=== PATIENT | male | born 1960 | race Caucasian/White ===

== ENCOUNTER 2022-02-24 13:05 | Emergency (ER) | payer OTHER, SELFPAY ==
[2022-02-24 13:14] VITALS: BP 137/73; PULSE 66; RESP 16; TEMP 37.2; O2SAT 98; BMI 21.7
[2022-02-24 15:47] VITALS: BP 141/84; PULSE 54; RESP 18; O2SAT 99
--- NOTE | 2022-02-24 16:01 | CRLHL7_ITS ---
For Patients: As a result of the Cures Act, medical imaging exams and procedure reports are released immediately into your electronic medical record. You may view this report before your referring provider. If you have questions, please contact your health care provider. INDICATION: Fall, left-sided chest pain.. TECHNIQUE: Chest 2 views. COMPARISON: None. FINDINGS: Cardiovascular and mediastinum: Cardiomediastinal silhouette is within normal limits Lungs and pleural spaces: Lungs are clear. No sign of pleural effusion. No pneumothorax. Bones and soft tissues: No significant findings. IMPRESSION: No acute or significant findings. Dictated by Jae Cortez MD @ 02/24/2022 4:47:52 PM (Electronically Signed)
--- NOTE | 2022-02-24 16:01 | CRLHL7_ITS ---
For Patients: As a result of the Cures Act, medical imaging exams and procedure reports are released immediately into your electronic medical record. You may view this report before your referring provider. If you have questions, please contact your health care provider. Indication: Fall. Technique: Left knee, 3 views. Comparison: None. Findings: Bones: Alignment is normal. No fractures or bone lesions. Mild demineralization of visualized bones. Joint spaces: Small to moderate suprapatellar effusion.. Mild tricompartmental degenerative changes. Soft tissues: Unremarkable. Impression: No acute fracture or dislocation identified. Moderate suprapatellar fusion. If there is persistent concern for fracture, consider further evaluation with CT or MRI of the knee. Dictated by Jae Cortez MD @ 02/24/2022 4:49:49 PM (Electronically Signed)
[2022-02-24] MEDS: IBUPROFEN 200 MG TABLET 400 MG PO (16:37)
[2022-02-24 16:53] LABS: Basophils Absolute Auto 0.05 K/uL (0.00-0.30); Basophils Percent Auto 0.6 % (0.0-3.0); Eosinophils Absolute Auto 0.05 K/uL (0.00-0.50); Eosinophils Percent Auto 0.6 % (0.0-7.0); Hematocrit 28.9 % (37.0-53.0); Hemoglobin* 8.3 gm/dL (13.5-17.5); Immature Granulocytes Abs Auto 0.01 K/uL (0.00-0.30); Immature Granulocytes Pct Auto 0.1 %; Lymphocytes Percent Auto 16.6 % (20-44); Mean Corpuscular HGB Conc 29 gm/dL (32-36); Mean Corpuscular Hemoglobin 19 pg (26-34); Mean Corpuscular Volume 67 fL (80-100); Monocytes Percent Auto 8.7 % (0.0-11.0); Neutrophils Percent Auto 73.4 % (42.0-72.0); Platelet Count* 425 K/uL (140-440); RDW Coefficient of Variation % 16.5 % (11.5-15.5); Red Blood Count 4.34 m/uL (4.30-5.90); White Blood Count* 8.01 K/uL (4.50-11.00)
[2022-02-24 16:56] LABS: Slide Review Reflex Yes
[2022-02-24 17:08] LABS: Albumin* 4.3 g/dL (3.3-5.0); Slide Review Acceptable Review (Acceptable)
[2022-02-24 17:09] LABS: Chloride* 106 mmol/L (96-114); Potassium* 4.7 mmol/L (3.6-5.1); Sodium* 138 mmol/L (135-149)
[2022-02-24 17:11] LABS: Bilirubin Total* 1.4 mg/dL (0.1-1.5); Carbon Dioxide* 26 mmol/L (20-32); Creatinine* 0.8 mg/dL (0.5-1.5); Est. Creatinine Clearance* 102.06; Estimated Glomerular Filt Rate 102 ml/min
[2022-02-24 17:12] LABS: Alanine Aminotransferase* 15 U/L (4-50); Alkaline Phosphatase* 74 U/L (40-150); Aspartate Amino Transferase* 20 U/L (12-35); Blood Urea Nitrogen* 12 mg/dL (7-30); Glucose* 86 mg/dL (60-115); Total Protein* 6.9 g/dL (6.0-8.3)
[2022-02-24 17:13] LABS: Calcium* 8.6 mg/dL (8.4-10.6)
--- NOTE | 2022-02-24 17:35 | ED_ITS ---
HPI - General Adult General Date Seen: 02/24/22 Chief complaint: Fall/Minor Trauma Stated complaint: Fell at Work,Rib & Knee pain Time Seen by Provider: 02/24/22 15:43 Source: patient Mode of arrival: ambulatory Limitations: no limitations History of Present Illness HPI narrative: Patient is a 61-year-old male who slipped and fell at work yesterday. He twisted his knee and landed on his left side. He has some pain in his left rib cage, no shortness of breath. Did not hit his head and has no complaints of neck or back pain. His knee he says was a little swollen but seems better toda y. Has not really taken any medications for pain. Was at work today and was feeling more sore so boss recommended that he be seen. Initially he denied other health concerns, although when I went back in to talk to him about his labs he told me that he had 2 ft of small intestine removed a number of years ago, has had diarrhea since then, is supposed to be on B12 injections but does not get them because of cost, takes B12 pills instead, had a colonoscopy on February 08, and is scheduled for some sort of small intestine test up in [facility] a couple of weeks from now and he is not sure what that test is 4. He denies allergies. He denies tobacco use or significant alcohol use. Related Data Home Medications Medication Instructions Recorded Confirmed No Known Home Medications 02/24/22 02/24/22 Allergies Allergy/AdvReac Type Severity Reaction Status Date / Time No Known Drug Allergies Allergy Verified 02/24/22 13:19 Review of Systems Status of ROS: Reports: 10 or more systems reviewed and unremarkable except as noted in History and below [facility] Social History Smoking Status: Former smoker What tobacco products do you use: cigarettes Years smoked: 15 Smoking quit date/years: <= 15 years ago Do you use any of these nicotine containing products: None Second hand tobacco smoke exposure: No How often do you have a drink containing alcohol: never How often do you have six or more drinks on one occasion: Never AUDIT-C Alcohol total score: 0 Non-prescribed substance use: denies use service: Yes Exam Narrative: Exam Narrative: Vital signs as noted above. In general, an alert, nontoxic male. Color is somewhat pale. Head: Normocephalic, atraumatic. Eyes: Pupils are equal reactive. Extraocular movements are full. Conjunctivae are normal. ENT: Mucous membranes are moist. Throat is normal. Neck: Supple without lymphadenopathy. Heart: Regular rate and rhythm. No murmur or rub. Chest wall is mildly tender on the left but without focal tenderness, no crepitus or subQ air. No bruising. Lungs: Clear bilaterally. No increased work of breathing, crackles or wheezes. Abdomen: Soft and nontender no left upper quadrant tenderness. Extremities: Well perfused. No edema. No calf tenderness. Pulses intact. Full range of motion of the left knee. No effusion. A little bit of swelling over the patella. No pain or laxity with varus valgus testing. Arely's is negative. Neurologic: Patient is alert and oriented to person and place. Speech is fluent. Face is symmetric. Moves all extremities equally. Affect: Normal. Skin: Warm and dry. Well perfused. Const: Vital Signs, click to edit/add: Vital Signs - 24 hr 02/24/22 13:14 02/24/22 15:47 Temperature 99.0 F Pulse Rate [Right Pulse Oximeter] 66 54 L Respiratory Rate 16 18 Blood Pressure [Ri ght Upper Arm] 137/73 141/84 H Pulse Oximetry 98 99 Oxygen Delivery Me thod Room Air Room Air Documenting provider has reviewed patient's vital signs: yes Course Course Hospital Course: I ordered x-rays of the chest and of the knee. Because of his pallor I elected to do some labs as well, I ordered a CBC, LFTs, metabolic panel. Chest x-ray by my review did not show any acute findings such as pneumothorax or obvious rib fracture. X-ray of the knee by my review was also negative. Final radiology reports are as follows: Chest x-ray no acute findings. Knee: Small to moderate suprapatellar effusion otherwise negative. CBC showed a hemoglobin of 8.3, MCV of 67, RDW of 16.5%. I have discussed this with the patient. He has no idea whether he has any history of anemia, he does not seem to think he does. However, he did have a colonoscopy at the beginning of the month (normal per his report) and has this small bowel test scheduled, which makes me wonder if maybe he does have a previous finding of anemia which is being currently worked up. Denies any black or bloody stools. He denies any shortness of breath, chest pain, lightheadedness or syncope. His metabolic panel and LFTs are normal. Overall, I think the anemia can be worked up as an outpatient, but did ask that he make sure to discuss this with his primary doctor. He has a history of seemingly B12 deficiency but his anemia is microcytic and I think that is somewhat less likely as the culprit. For the chest and knee, these seem to be unrelated to fracture. I think the rib is more likely bruise rather than fractured based on his exam. Recommend ice and Tylenol for both. If not improving over the next week or 2 recheck with primary doctor. Did discuss that x-rays are not perfect, I do not see anything that makes me suspicious of a fracture in the knee at this time, but if not improving that can be rechecked. If new symptoms develop such as black or bloody stools, chest pain, shortness of breath, fainting, he should be seen again more urgently. Vital Signs Vital signs: Initial Vital Signs Temperature 99.0 F 02/24/22 13:14 Temperature Source Temporal Artery Scan 02/24/22 13:14 Pulse Rate 66 02/24/22 13:14 Respiratory Rate 16 02/24/22 13:14 Blood Pressure 137/73 02/24/22 13:14 Blood Pressure Mean 94 02/24/22 13:14 Blood Pressure Position Sitting 02/24/22 13:14 Pulse Oximetry 98 02/24/22 13:14 Oxygen Delivery Method 02/24/22 13:14 Vital Signs Temperature 99.0 F 02/24/22 13:14 Pulse Rate 66 02/24/22 13:14 Respiratory Rate 16 02/24/22 13:14 Blood Pressure 137/73 02/24/22 13:14 Pulse Oximetry 98 02/24/22 13:14 Oxygen Delivery Method 02/24/22 13:14 Temperature 99.0 F 02/24/22 13:14 Pulse Rate 54 L 02/24/22 15:47 Respiratory Rate 18 02/24/22 15:47 Blood Pressure 141/84 H 02/24/22 15:47 Pulse Oximetry 99 02/24/22 15:47 Oxygen Delivery Method 02/24/22 15:47 Medical Decision Making Lab Data Labs: Lab Results 02/24/22 02/24/22 Range/Units 16:43 16:43 WBC 8.01 (4.50-11.00) K/uL RBC 4.34 (4.30-5.90) m/uL Hgb 8.3 L (13.5-17.5) gm/dL Hct 28.9 L (37.0-53.0) % MCV 67 L (80-100) fL MCH 19 L (26-34) pg MCHC 29 L (32-36) gm/dL RDW Coeff of Kerline 16.5 H (11.5-15.5) % Plt Count 425 (140-440) K/uL Neut % (Auto) 73.4 H (42.0-72.0) % Lymph % (Auto) 16.6 L (20-44) % [facility] % (Auto) 8.7 (0.0-11.0) % Eos % (Auto) 0.6 (0.0-7.0) % Baso % (Auto) 0.6 (0.0-3.0) % Neut # (Auto) 5.90 (1.7-7.0) K/uL Lymph # (Auto) 1.30 (0.90-2.90) K/uL [facility] # (Auto) 0.70 (0.00-0.90) K/UL Eos # (Auto) 0.05 (0.00-0.50) K/uL Baso # (Auto) 0.05 (0.00-0.30) K/uL Diff Slide Review Acceptable Review (Acceptable) Sodium 138 (135-149) mmol/L Potassium 4.7 (3.6-5.1) mmol/L Chloride 106 (96-114) mmol/L Carbon Dioxide 26 (20-32) mmol/L BUN 12 (7-30) mg/dL Creatinine 0.8 (0.5-1.5) mg/dL Estimated Creat Clear 102.06 Estimated GFR 102 ml/min Glucose 86 (60-115) mg/dL Calcium 8.6 (8.4-10.6) mg/dL Total Bilirubin 1.4 (0.1-1.5) mg/dL Direct Bilirubin 0.0 (0.0-0.5) mg/dL AST 20 (12-35) U/L ALT 15 (4-50) U/L Alkaline Phosphatase 74 (40-150) U/L Total Protein 6.9 (6.0-8.3) g/dL Albumin 4.3 (3.3-5.0) g/dL Discharge Plan Discharge Clinical Impression: Left knee sprain, Rib contusion, Microcytic anemia Patient Disposition: Home, Self-Care Condition: Stable Instructions: Knee Sprain (ED), Rib Contusion (ED) Additional Instructions: For your knee and rib, use ice several times a day for the next few days. Tylenol as needed. If you are not feeling better over the next week or 2, follow-up with your primary care doctor for recheck. Your hemoglobin today is 8.4. Please review this with your primary doctor to see whether this is stable or a new problem for you. If at any point you notice bloody or black stools, new weakness, lightheadedness or fainting, chest pain or shortness of breath, you should be seen again in the emergency department. Prescriptions: No Action No Known Home Medications Follow Up/Referrals: Provider,Not a Local [Primary Care Provider] - Stand Alone Forms: [id number] Info Instructions
== END 2022-02-24 17:45 | disposition home or self-care (01) ==
PROVIDERS: Emergency Provider Emergency Medicine
DX: S83.92XA Sprain of unspecified site of left knee, initial encounter (principal); W01.0XXA Fall on same level from slipping, tripping and stumbling without subsequent striking against object, initial encounter; S20.212A Contusion of left front wall of thorax, initial encounter
CPT/HCPCS: 36415; 71046; 73562; 80048; 80076; 85025; 99284; A9270

== ENCOUNTER 2024-02-08 13:49 | Emergency (ER) | payer BC, SELFPAY ==
[2024-02-08] VITALS (21 sets, daily range): BP systolic 125–143; BP diastolic 81–87; PULSE 48–58; RESP 18; TEMP 37; O2SAT 95–97; BMI 21.7
--- NOTE | 2024-02-08 14:45 | ED_ITS ---
HPI - General Adult General Date Seen: 02/08/24 Chief complaint: Abdominal Pain Stated complaint: chest/abdomen pain Time Seen by Provider: 02/08/24 14:41 History of Present Illness HPI narrative: 63-year-old male presenting to the ER today with pain in his right lower ribs. (nurse triage note indicates right upper abdominal pain and right a Rue lower rib pain, but that is not quite accurate. He is not having abdominal pain, just rib pain and tenderness) Pain actually began 4 days ago on Monday. He says that he does not have any known specific injury but on Monday he was change during the battery in his truck. The battery had gone because of the cold weather. He did have to stand on the battery and then lean over the fender of his truck to get into the engine compartment and wonders if he might have bruised his ribs when he was leaning over. He has been having pain since Monday afternoon. The pain is on the lateral side of the ribcage below the nipple. This is always some mild pain but the pain gets worse with movement and breathing. He has been feeling a little bit dizzy. No nausea or vomiting. No palpitations. No central chest pain. No pain through to his back. No pain radiating down his arm. He is not having any abdominal pain or flank pain. Pain is not worsened by eating. Bowel movements normal. Urination normal. No fever. When he pushes on the area he is able to reproduce the pain. He has not noticed any bruises. He has been waiting for the pain to get better but since it is not improving he wanted to come in to get checked out to make sure there was nothing more serious, like a heart problem. Related Data Home Medications ?Medication ?Instructions ?Recorded ?Confirmed ferrous sulfate 325 mg (65 mg 325 mg PO DAILY 02/08/24 02/08/24 iron) tablet (Feosol) loperamide 2 mg capsule 2 mg PO Q6H PRN 02/08/24 02/08/24 (Anti-Diarrheal (loperamide)) Previous Rx's ?Medication ?Instructions ?Recorded hydrocodone 5 mg-acetaminophen 325 1 tab PO Q4-6H PRN pain #10 tabs 02/08/24 mg tablet Allergies Allergy/AdvReac Type Severity Reaction Status Date / Time No Known Drug Allergies Allergy Verified 02/08/24 14:09 PFSH PFSH Social History (Updated 02/24/22 @ 17:44 by Steffany Thurston MD) Smoking Status: Former smoker What tobacco products do you use: cigarettes Years smoked: 15 Smoking quit date/years: <= 15 years ago Do you use any of these nicotine containing products: None Second hand tobacco smoke exposure: No How often do you have a drink containing alcohol: never How often do you have six or more drinks on one occasion: Never AUDIT-C Alcohol total score: 0 Non-prescribed substance use: denies use service: Yes Exam Narrative: Exam Narrative: Constitutional: Appears well-developed and well-nourished. Alert. Conversant. Non toxic. HENT: Head: Atraumatic. Nose: Nose normal. Mouth/Throat: Oral mucosa is clear and moist. no trismus. Pharynx normal. Eyes: Conjunctivae normal. EOM normal. Pupils equal, round, and reactive to light. No scleral icterus. Neck: Normal range of motion. Neck supple. No tracheal deviation present. Cardiovascular: Normal rate, regular rhythm. No gallop. No friction rub. No murmur heard. Symmetric radial artery pulses Pulmonary/Chest: Effort normal. No stridor. No respiratory distress. No wheezes. No rales. No rhonchi . Right anterior lateral lower rib tenderness. no crepitus. no bruising. No rash or blisters. Abdominal: Soft. Bowel sounds normal. No distension. No mass. No tenderness. No right upper quadrant tenderness or Graves sign. No hepatomegaly. No CVA tenderness. No rebound. No guarding. Musculoskeletal: RUE: Normal range of motion. No tenderness. No deformity LUE: Normal range of motion. No tenderness. No deformity RLE: Normal range of motion. No edema. No tenderness. No deformity LLE: Normal range of motion. No edema. No tenderness. No deformity Neurological: Alert and oriented to person, place, and time. Normal strength. CN II-VII intact. No sensory deficit. GCS eye subscore is 4. GCS verbal subscore is 5. GCS motor subscore is 6. Normal coordination Skin: Skin is warm and dry. No rash noted. No pallor. Normal capillary refill. Psychiatric: Normal mood. Normal affect. Const: Vital Signs, click to edit/add: Vital Signs - 24 hr 02/08/24 14:02 02/08/24 14:31 02/08/24 14:32 Temperature 98.6 F Pulse Rate 53 L 53 L Pulse Rate [Right Pulse Oximeter] 58 L Respiratory Rate 18 Blood Pressure 141/86 H Blood Pressure [Ri ght Upper Arm] 143/81 H Pulse Oximetry 96 95 96 Oxygen Delivery Me thod Room Air 02/08/24 14:32 02/08/24 14:33 02/08/24 14:45 Temperature Pulse Rate 53 L 57 L 54 L Pulse Rate [Right Pulse Oximeter] Respiratory Rate Blood Pressure 141/86 H Blood Pressure [Ri ght Upper Arm] Pulse Oximetry 96 96 95 Oxygen Delivery Me thod 02/08/24 15:00 02/08/24 15:02 02/08/24 15:15 Temperature Pulse Rate 55 L 51 L 48 L Pulse Rate [Right Pulse Oximeter] Respiratory Rate Blood Pressure 129/82 Blood Pressure [Ri ght Upper Arm] Pulse Oximetry 96 96 95 Oxygen Delivery Me thod 02/08/24 15:31 02/08/24 15:32 02/08/24 15:45 Temperature Pulse Rate 50 L 50 L 51 L Pulse Rate [Right Pulse Oximeter] Respiratory Rate Blood Pressure 135/87 Blood Pressure [Ri ght Upper Arm] Pulse Oximetry 97 97 96 Oxygen Delivery Me thod 02/08/24 16:00 02/08/24 16:02 02/08/24 16:03 Temperature Pulse Rate 51 L 51 L 51 L Pulse Rate [Right Pulse Oximeter] Respiratory Rate Blood Pressure 137/85 Blood Pressure [Ri ght Upper Arm] Pulse Oximetry 96 96 96 Oxygen Delivery Me thod 02/08/24 16:15 02/08/24 16:30 02/08/24 16:32 Temperature Pulse Rate 51 L 52 L 53 L Pulse Rate [Right Pulse Oximeter] Respiratory Rate Blood Pressure 125/86 Blood Pressure [Ri ght Upper Arm] Pulse Oximetry 96 97 97 Oxygen Delivery Me thod Course Vital Signs Vital signs: Initial Vital Signs Temperature 98.6 F 02/08/24 14:02 Temperature Source Temporal Artery Scan 02/08/24 14:02 Pulse Rate 58 L 02/08/24 14:02 Pulse Rhythm Regular 02/08/24 14:02 Pulse Strength 3+ Normal 02/08/24 14:02 Respiratory Rate 18 02/08/24 14:02 Blood Pressure 143/81 H 02/08/24 14:02 Blood Pressure Mean 101 02/08/24 14:02 Blood Pressure Position Sitting 02/08/24 14:02 Pulse Oximetry 96 02/08/24 14:02 Oxygen Delivery Method Room Air 02/08/24 14:02 Vital Signs Temperature 98.6 F 02/08/24 14:02 Pulse Rate 58 L 02/08/24 14:02 Respiratory Rate 18 02/08/24 14:02 Blood Pressure 143/81 H 02/08/24 14:02 Pulse Oximetry 96 02/08/24 14:02 Oxygen Delivery Method Room Air 02/08/24 14:02 Temperature 98.6 F 02/08/24 14:02 Pulse Rate 53 L 02/08/24 16:32 Respiratory Rate 18 02/08/24 14:02 Blood Pressure 125/86 02/08/24 16:32 Pulse Oximetry 97 02/08/24 16:32 Oxygen Delivery Method Room Air 02/08/24 14:02 Medical Decision Making MDM Narrative Medical decision making narrative: This patient presents to the ER today for evaluation of right lower anterolateral chest pain ongoing for the past 4 days since Monday afternoon. Differential was broad. No evidence of palpitations, syncope or other cardiac dysrhythmia. We considered possible ACS, however workup with EKG and troponin is negative. HEART score is 1. Given time since onset of symptoms, I do not think the patient needs to be admitted for further sets of enzymes. EKG shows no evidence for pericarditis. Clinical presentation not suggestive of myocarditis. Chest x-ray shows no evidence for pneumonia, pneumothorax, pulmonary edema, pleural effusion, rib fracture, cardiomegaly. Mediastinum is normal on the x-ray. The patient has no ripping or tearing pain through to the back and has symmetric pulses on exam, no other acute neuro findings so I doubt aortic dissection. Risk of radiation and contrast exposure would outweigh the benefit of CT angiogram. We considered PE for this patient. However he is overall very low risk. No tachycardia, hypoxia. No recent travel or immobilization. No lower extremity swelling to suggest DVT. No wheezing or bronchospasm to suggest COPD/asthma. He is not having any tenderness in the right upper quadrant. LFTs and lipase are normal. At this point no evidence for cholecystitis or biliary colic. Would hold off on gallbladder ultrasound or CT for now. No signs of chest wall cellulitis, shingles. He was bending over the fender of his car on Monday before the pain started to replace the battery. It is possible that this is a chest wall injury or bruise. X-rays negative for any visible rib fracture. No evidence for pneumothorax, hemothorax, pulmonary contusion. With reasonable clinical confidence, I think the patient is safe for outpatient follow up. Discussed return precautions. Questions answered. Patient voices comfort with the plan. Incidentally labs show that he is anemic. He is hemodynamically stable. No recent black or bloody stools. Hemoglobin 2 years ago was actually lower at 8.4. Suspect this is a chronic anemia. He had been previously of where this and apparently is doctors recommended that he take iron supplements in the past. He is not currently taking them. He has a history of Crohn's with some loose stools for the past couple of decades. He is currently following with RENE Shaw through the [facility] system. He has been recommended to start taking an injectable Crohn's medication but has not been able to afford it because of insurance. Recommended outpatient follow-up with his PCP at the [facility] and with [facility] within the next 1-2 weeks to have his repeat hemoglobin check and make sure that they are optimizing his medication regimen for anemia and for Crohn's. Lab Data Labs: Lab Results 02/08/24 Range/Units 15:40 WBC 4.55 (4.50-11.00) K/uL RBC 4.08 L (4.30-5.90) m/uL Hgb 9.4 L (13.5-17.5) gm/dL Hct 32.0 L (37.0-53.0) % MCV 78 L (80-100) fL MCH 23 L (26-34) pg MCHC 29 L (32-36) gm/dL RDW Coeff of Kerline 22.5 H (11.5-15.5) % Plt Count 345 (140-440) K/uL Neut % (Auto) 65.7 (42.0-72.0) % Lymph % (Auto) 19.3 L (20-44) % [facility] % (Auto) 9.5 (0.0-11.0) % Eos % (Auto) 4.4 (0.0-7.0) % Baso % (Auto) 0.9 (0.0-3.0) % Neut # (Auto) 2.99 (1.7-7.0) K/uL Lymph # (Auto) 0.90 (0.90-2.90) K/uL [facility] # (Auto) 0.40 (0.00-0.90) K/UL Eos # (Auto) 0.20 (0.00-0.50) K/uL Baso # (Auto) 0.04 (0.00-0.30) K/uL Abs Immat Gran (auto) 0.01 (0.00-0.30) K/uL Imm/Tot Granulo (auto) 0.2 % Sodium 138 (135-149) mmol/L Potassium 3.9 (3.6-5.1) mmol/L Chloride 107 (96-114) mmol/L Carbon Dioxide 27 (20-32) mmol/L Anion Gap 4 L (7-15) mEq/L BUN 14 (7-30) mg/dL Creatinine 0.6 (0.5-1.5) mg/dL Estimated Creat Clear 79.63 Estimated GFR 110 ml/min Glucose 84 (60-115) mg/dL Calcium 8.6 (8.4-10.6) mg/dL Total Bilirubin 0.6 (0.1-1.5) mg/dL AST 29 (12-35) U/L ALT 19 (4-50) U/L Alkaline Phosphatase 60 (40-150) U/L Troponin I < 0.01 L (0.01-0.04) ng/mL Total Protein 6.1 (6.0-8.3) g/dL Albumin 3.8 (3.3-5.0) g/dL Lipase 82 (23-300) U/L Imaging Data Chest x-ray: Attestation: I have reviewed the pertinent imaging results. My impression: No acute visible rib fracture. No pneumothorax. No pleural effusion. No infiltrate. Radiologist's impression: IMPRESSION: No acute cardiopulmonary process. No acute displaced rib fractures, pleural effusions or pneumothorax. ECG Data Attestation: I personally reviewed and interpreted this ECG as follows: Interpretation: Sinus bradycardia with sinus a rhythm Rate: 56 TX: 140 QRS axis: Normal axis ST segment/T wave: No ST segment elevation or depression QTc: 407 Discharge Plan Discharge Clinical Impression: Chest pain, Anemia Patient Disposition: Home, Self-Care Condition: Stable Instructions: Chest Pain (DC), Anemia (ED), Chest Wall Pain (ED) Additional Instructions: As we discussed, the workup for your chest pain looks reassuring so far. We suspect that your chest pain is probably due to a bruised rib cage. However, I want to watch wrist chest pain closely and if you are having worsening pain, trouble breathing, dizzy spells, palpitations, or any worsening symptoms you should return to the ER immediately. If your pain is not so substantially improving within 24-48 hours, please come back to the ER or see your doctor for a recheck Your laboratory workup shows that your hemoglobin today is low. It is 9.4. You are anemic. Please follow-up your doctors for a recheck. Call Dr. Sandoval and the [facility] to arrange follow-up visits for within 1-2 weeks. Use caution with [place] because it is a prescription pain killer. It can cause dizziness, drowsiness, constipation. It can be addictive. Do not drive for 6 hours after taking [place]. Prescriptions: New hydrocodone-acetaminophen 5-325 mg tablet 1 tab PO Q4-6H PRN (Reason: pain) Qty: 10 0RF No Action ferrous sulfate [Feosol] 325 mg (65 mg iron) tablet 325 mg PO DAILY loperamide [Anti-Diarrheal (loperamide)] 2 mg capsule 2 mg PO Q6H PRN Follow Up/Referrals: Provider,Not a Local [Primary Care Provider] - Stand Alone Forms: [employer] Info Instructions
--- NOTE | 2024-02-08 15:16 | CRLHL7_ITS ---
For Patients: As a result of the Century Cures Act, medical imaging exams and procedure reports are released immediately into your electronic medical record. You may view this report before your referring provider. If you have questions, please contact your health care provider. INDICATION: Right anterolateral rib pain. TECHNIQUE: Chest radiographs, 2 views. COMPARISON: Chest radiographs 02/24/2022. FINDINGS: Cardiovascular/Mediastinum: Normal heart size. Unremarkable. Lungs: No focal consolidation. Linear band like opacification of the lungs bilaterally, likely subsegmental atelectasis and/or scarring. Airways: Trachea remains midline. Pleura: No pleural effusions or pneumothorax. Bones: No acute osseous abnormalities. Upper abdomen: Unremarkable. IMPRESSION: No acute cardiopulmonary process. No acute displaced rib fractures, pleural effusions or pneumothorax. Dictated by Rigo Schultz MD @ 02/08/2024 3:38:05 PM (Electronically Signed)
[2024-02-08 15:48] LABS: Basophils Absolute Auto 0.04 K/uL (0.00-0.30); Basophils Percent Auto 0.9 % (0.0-3.0); Eosinophils Percent Auto 4.4 % (0.0-7.0); Hemoglobin* 9.4 gm/dL (13.5-17.5); Immature Granulocytes Abs Auto 0.01 K/uL (0.00-0.30); Immature Granulocytes Pct Auto 0.2 %; Lymphocytes Percent Auto 19.3 % (20-44); Mean Corpuscular HGB Conc 29 gm/dL (32-36); Mean Corpuscular Hemoglobin 23 pg (26-34); Mean Corpuscular Volume 78 fL (80-100); Monocytes Percent Auto 9.5 % (0.0-11.0); Neutrophils Absolute Auto 2.99 K/uL (1.7-7.0); Neutrophils Percent Auto 65.7 % (42.0-72.0); Platelet Count* 345 K/uL (140-440); RDW Coefficient of Variation % 22.5 % (11.5-15.5); Red Blood Count 4.08 m/uL (4.30-5.90); White Blood Count* 4.55 K/uL (4.50-11.00)
[2024-02-08 15:49] LABS: Slide Review Reflex No
[2024-02-08 16:08] LABS: Albumin* 3.8 g/dL (3.3-5.0); Chloride* 107 mmol/L (96-114); Sodium* 138 mmol/L (135-149)
[2024-02-08 16:10] LABS: Anion Gap 4 mEq/L (7-15); Aspartate Amino Transferase* 29 U/L (12-35); Bilirubin Total* 0.6 mg/dL (0.1-1.5); Carbon Dioxide* 27 mmol/L (20-32); Creatinine* 0.6 mg/dL (0.5-1.5); Est. Creatinine Clearance* 79.63; Estimated Glomerular Filt Rate 110 ml/min
[2024-02-08 16:11] LABS: Alanine Aminotransferase* 19 U/L (4-50); Alkaline Phosphatase* 60 U/L (40-150); Blood Urea Nitrogen* 14 mg/dL (7-30); Calcium* 8.6 mg/dL (8.4-10.6); Glucose* 84 mg/dL (60-115); Lipase* 82 U/L (23-300); Potassium* 3.9 mmol/L (3.6-5.1); Total Protein* 6.1 g/dL (6.0-8.3)
[2024-02-08 16:25] LABS: Troponin I* < 0.01 ng/mL (0.01-0.04)
== END 2024-02-08 17:10 | disposition home or self-care (01) ==
PROVIDERS: Emergency Provider Emergency Medicine
DX: R07.9 Chest pain, unspecified (principal); D64.9 Anemia, unspecified
CPT/HCPCS: 36415; 71046; 80053; 83690; 84484; 85025; 93005; 99284

== ENCOUNTER 2024-07-30 08:13 | Emergency (ER) | payer OTHER, BC, SELFPAY ==
--- OUTSIDE RECORDS SUMMARY | 2024-07-30 08:16 | XMS_ITS | Clinical Summary ---
Author Organization [employer] [facility] Address [address] [place] [id number] Care Team Providers Care Program Paraprofessional Name Role Phone Alma Hawthorne DO Primary Care Provider [phone] Allergies No known active allergies Medications multivitamin (MVI) tablet Take 1 tablet. by mouth once daily. Not currently taking 0 4 Active cyanocobalamin (VITAMIN B-12) 1,000 mcg tabletIndication s:Vitamin B12 deficiency Take 1 tablet by mouth once daily. 90 tablet 3 4 Active Additional Information Patient not taking.Reported on 12/28/2023 polyethylene glycol-electroly te (GOLYTELY) 236-22.74-6.74 -5.86 gram suspensionIndica tions:Encounter for screening colonoscopy Drink 2 liters the day before the colonoscopy and drink 2 liters 6 hours before colonoscopy appointment 4000 mL 2 Active Active Problems Problem Noted Date Diagnosed Date Crohn's disease of small intestine with other co mplication 02/10/2022 Overview (02/10/2022): Colonoscopy 02/2022 stricture of ileocolonic anastomosis, no polyps, no Crohn's colitis, repeat in 10 years Vitamin B12 deficiency 11/06/2013 Resolved Problems Problem Noted Date Diagnosed Date Resolved Date Bunion of right foot 10/29/2015 022 Immunizations Immunization Administration Dates Next Due COVID-19 vaccine (Jose-J&J) ERICKA PELAEZ 1 COVID-19 vaccine ([employer] NTech 30mcg/0.3mL) 12YO+ JAI-SUCROSE ERICKA PELAEZ 11/05/2021 Influenza, IIV3 (Age >=3 years) 02/05/2008 Influenza, IIV4 11/05/2021,04/10/2019 Td (Age >=7 Years) 11/24/2004 Td, Preservative Free (age >= 7 Years) 5 Tdap 11/05/2013 Family History Medical History Relation Name Comments Good Health Brother 1 Good Health Brother 2 Diabetes Father Heart Disease Father mild heart att ack/ 54 age Unknown Maternal Grandfather Unknown Maternal Grandmother Good Health Mother Unknown Paternal Grandfather Unknown Paternal Grandmother Cancer Sister 1 Unsure what typ e Other Sister 2 Bone marrow [place] Cancer-colon No Family History Cancer-prostate No Family History Relation Name Status Comments Brother 1 Alive Brother 2 Alive Father Alive Maternal Grandfather Maternal Grandmother Mother Alive Paternal Grandfather Paternal Grandmother Sister 1 Alive Sister 2 Alive Social History Tobacco Use Types Packs/Day Years Used Date Smoking Tobacco: Former Cigarettes 1 15 Smokeless Tobacco: Never Tobacco Cessation:Counseling Given: Yes Comments:quit in 1997 Alcohol Use Standard Drinks/Week Comments No 0 (1 standard drink = 0.6 oz pur e alcohol) quit in 1997 PHQ-2 Answer Date Recorded PHQ-2 Score 2 03/28/2019 Social Connections Answer Date Recorded Frequency of Communication with Friends and Fami ly Not on file 03/06/2021 Financial Resource Strain Answer Date R ecorded Difficulty of Paying Living Expenses Not on file 03/06/2021 Difficulty of Paying Living Expenses Not on file 03/06/2021 Sex and Gender Information Value Date Recorded Sex Assigned at Not on file Legal Sex Male 5:26 AM [facility] Gender Identity Not on file Sexual Orientation Not on file 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 Not on file Not on file Not on file Obstetrics History Last Filed Vital Signs Vital Sign Reading Time Taken Comments Blood Pressure 145/89 12/28/2023 7:36 AM CDT Pulse 52 12/28/2023 7:36 AM CDT Temperature 36.3 C (97.3 F) 04/10/2019 8:38 AM [facility] Respiratory Rate - - Oxygen Saturation 98% 12/28/2023 7:36 AM CDT Inhaled Oxygen Concentration - - Weight 73.9 kg (163 lb) 12/28/2023 7:36 AM CDT Height 175.9 cm (5' 9.25) 04/10/2019 8:38 AM CS T Body Mass Index 23.9 04/10/2019 8:38 AM [facility] Plan of Treatment Health Maintenance Due Date Last Done Comments HIV for age 15-65 1977 Pneumococcal series for age 50+ (1 of 1 - PCV) 2012 Zoster (shingles) series for age 50+ (1 of 2) 2012 BMI (ht and wt on same day) for age 18+ 04/10/2020 04/10/2019, 04/04/2019, 03/28/2019, Additional history exists Depression screening for age 12+ 04/10/2020 04/10/2019, 03/28/2019, 03/28/2019, Additional history exists RSV vaccine for adults or (1 - Risk 60-74 years 1-dose series) 2022 COVID-19 vaccine series ( season) 2023 11/05/2021, 07/23/2020 Tetanus booster 11/06/2023 11/05/2013, 11/05, 11/24/2004 Influenza Vaccine (Season Ended) 2024 11/05/2021, 04/10/2019, 02/05/2008 Lipids for age 45-75 11/05/2026 11/05/2021, 04/10/2019, 10/21/2015, Additional history exists Colonoscopy through age 75 02/09/203202/08, 02/08/2022, 02/08/2022 Tdap Completed 11/05/2013 Hepatitis C screening for age 18-79 Completed 11/05/2021 Hepatitis B series for 19+ Aged Out N o longer eligible based on patient's age to complete this topic Procedures Procedure Name Priority Date/Time Associated Diagnosis Comments COLONOSCOPY 02/08/2022 1:03 PM [facility] ANTI HCV Routine 11/05/2021 10:23 AM CDT Need for hepatitis C screening test LIPID PANEL W REFLEX MEASURED LDL Routine 11/05/2021 10:23 AM CDT Screening cholesterol level from Last 3 Months or Most Recently Relevant to Health Maintenance Results * COLONOSCOPY (02/08/2022 1:03 PM [facility]) 02/08/2022 1:03 PM [facility] Narrative Transcriptions Howard Turner MD - 02/08/2022 2:12 PM CST Patient Name: Deejay Durán Procedure Date: 02/08/2022 Gender: Male Date of : 1960 Admit Type: Outpatient Procedure: Colonoscopy Proceduralist: Howard Turner MD , Sujey Mckenna RN(Nurse), Em Richards RN (Nurse) Referring MD: Alma Hawthorne Indications/Pre-Op Diagnosis: Screening for colorectal malignant neoplasm, This is the patient's first colonoscopy, Incidental - Crohn's disease of the smallbowel Medications: Fentanyl 100 micrograms IV, Midazolam 3 mgIV, The level of sedation administered wasmoderate Procedure Description: The patient had risks, benefits and alternatives explained to andgave informed consent. The patient had a stable cardiopulmonary status and judged an adequate candidate for conscious sedation. The endoscope [id number]-[id number] was passed through the anus andadvanced to the ileocolonic anastomosis. The colonoscopy was performed without difficulty. The patient tolerated the procedure well. The quality ofthe bowel preparation was good. The terminal ileum and the rectum were photographed. Complications: No immediate complications. Estimated Blood Loss & Specimen: Estimated blood loss: none. Specimen collected - Yes and sent to Laboratory Findings: The perianal and digital rectal examinations were normal. There was evidence of a prior end-to-end ileo-colonic anastomosis inthe ascending colon. This was non-patent and was characterized bystenosis. The anastomosis was not traversed. Biopsies were taken with a cold forceps for histology and were labeled ileum. The exam was otherwise without abnormality. Biopsies for histology were taken with a cold forceps from the entire colon for evaluation of microscopic colitis. Impressions/Post-Op Diagnosis: - Non-patent end-to-end ileo-colonic anastomosis, characterized by stenosis. Biopsied. - The examination was otherwise normal. - Biopsies were taken with a cold forceps from the entire colon for evaluation of microscopic colitis. Recommendation: - Patient has a contact number available for emergencies. The signsand symptoms of potential delayed complications were discussed with the patient. Return to normal activities tomorrow. Written discharge instructions were provided to the patient. - Resume previous diet. - Continue present medications. - Await pathology results. - Repeat colonoscopy is recommended. The colonoscopy date will be determined after pathology results from today's exam become available for review. - Consicer CT scan to re-evaluate for small bowel Crohn's disease. Moderate Sedation: A time out was performed before the procedure. Moderate (conscious) sedation was administered by the endoscopy nurse and supervised bythe endoscopist. The following parameters were monitored: oxygensaturation, heart rate, blood pressure, EKG, CO2, respiratory rate, adequacy of pulmonary ventilation and reponse to care. Please refer to the patient's medical record flowsheets and nursing notes for moderate sedation details. Total physician intraservice time was 19 minutes. Howard Turner MD 02/08/2022 2:11:57 PM This report has been signed electronically. Note Initiated On: 02/08/2022 1:03 PM Procedure Code(s): --- Professional --- 53153, Colonoscopy, flexible; with biopsy, single or multiple Diagnosis Code(s): --- Professional --- Z12.11, Encounter for screening formalignant neoplasm of colon K91.89, Other postprocedural complicationsand disorders of digestive system CPT copyright 2020 [employer]. All rights reserved. The codes documented in this report are preliminary and upon inpatient coder reviewmay be revised to meet current compliance requirements. Scope In: 1:37:47 PM Scope Withdrawal Time 0 hours 15 minutes 3 seconds Scope Out: 1:55:32 PM us Howard Turner MD PROCEDURE ORD Final Res ult * LIPID PANEL W REFLEX MEASURED LDL (11/05/2021 10:23 AM CDT) CHOLESTEROL,TOTAL 149 100 - 199 mg/dL 11/05/2021 8:09 PM CDT [facility] TRIGLYCERIDES 52 <150 mg/dL 11/05/2021 8:09 PM CDT [facility] HDL CHOLESTEROL 50 >40 mg/dL 8:09 PM CDT [facility] NON-HDL CHOLESTEROL 99 <145 mg/dl 11/05/2021 8:09 PM CDT [facility] CHOL/HDL RATIO 2.98 <4.50 11/05/2021 8:09 PM CDT [facility] LDL CHOLESTEROL 89 <=130 mg/dL 11/05/2021 8:09 PM CDT [facility] VLDL CHOLESTEROL 10 <=30 mg/dL 11/05/2021 8:09 PM CDT [facility] PROVIDER ORDERED STATUS RANDOM 11/05/2021 8:09 PM CDT [facility] Blood BLOOD SPECIMEN / Unknown Venipuncture / Unknown 11/05/2021 10:23 AM CDT 11/05/2021 10:23 AM CDT us Alma Hawthorne DO CHEMISTRY Final Result [facility] [address] [place] [address], * ANTI HCV (11/05/2021 10:23 AM CDT) HEPATITIS C ANTIBODY Non-React tavo Non-React tavo 11/05/2021 8:34 PM CDT [facility] Comment:Antibodies to HCV no t detected; does not exclude the possibility of exposure to HCV. Blood BLOOD SPECIMEN / Unknown Venipuncture / Unknown 11/05/2021 10:23 AM CDT 11/05/2021 10:23 AM CDT us Alma Hawthorne DO SEND OUTS Final Result [facility] [address] [place] [address], [place] from Last 3 Months or Most Recently Relevant to Health Maintenance Insurance [address] [place] [id number] [employer] [facility] [address] [place] [id number] [employer] Care Teams Program Paraprofessional Relationship Specialty Start Date End Date Alma Hawthorne DO [address] [place] [address] PCP - General Family Practice 11/05/21
[2024-07-30 08:23] VITALS: BP 166/87; PULSE 50; RESP 18; TEMP 36.6; O2SAT 98; BMI 22.2
--- NOTE | 2024-07-30 08:31 | ED_ITS ---
HPI - General Adult General Time Seen by Provider: 08:35 Date Seen: 07/30/24 Chief complaint: Extremity Pain/Injury, Upper Stated complaint: Middle finger drilled it at work Time Seen by Provider: 07/30/24 08:31 Source: patient and RN notes reviewed Mode of arrival: ambulatory Limitations: no limitations History of Present Illness HPI narrative: Deejay is a very pleasant 63-year-old gentleman, last tetanus November 2013, who comes to the emergency room with intermittent swelling of the right middle finger after having a penetrating injury on July 20. Patient notes that he was at work at [employer] when a drill went through his finger-shows this to be the posterior lateral area near the D IP of the right 3rd finger. He states that he pulled the drill out any continue to work. Since that time he has had intermittent swelling of the finger and it is swollen today. He has not had any fever chills vomiting. He notes that he feels like the finger is now deformed and is pushing toward his 5th finger. He has discomfort when he is trying to bend it. Related Data Home Medications ?Medication ?Instructions ?Recorded ?Confirmed ferrous sulfate 325 mg (65 mg 325 mg PO DAILY 02/08/24 02/08/24 iron) tablet (Feosol) loperamide 2 mg capsule 2 mg PO Q6H PRN 02/08/2407/27 (Anti-Diarrheal (loperamide)) Previous Rx's ?Medication ?Instructions ?Recorded hydrocodone 5 mg-acetaminophen 325 1 tab PO Q4-6H PRN pain #10 tabs 02/08/24 mg tablet Allergies Allergy/AdvReac Type Severity Reaction Status Date / Time No Known Drug Allergies Allergy Verified 07/30/24 08:22 Review of Systems Status of ROS: Reports: 6 or more systems reviewed and unremarkable except as noted in History and below Const: Denies: fever, chills or fatigue ENMT: Denies: neck pain Musculo: Denies: neck pain Integ/Breast: Reports: skin tenderness and skin swelling; Denies: rash Neuro: Denies: headache Endo: Denies: fatigue PFSH PFS Medical History (Updated 07/30/24 @ 11:55 by Shelby Baires~[employer]PARATION DESIGN[employer], [employer]) Other B-complex deficiencies ?E53.8 - Deficiency of other specified B group vitamins (ICD-10) Regional enteritis of unspecified site ?K50.90 - Crohn's disease, unspecified, without complications (ICD-10) Bunion of right foot (10/29/15) ?M21.611 - Bunion of right foot (ICD-10) Surgical History (Updated 07/30/24 @ 11:55 by Shelby Baires~[facility], [facility]) History of appendectomy ?Z90.49 - Acquired absence of other specified parts of digestive tract (ICD- 10) H/O esophagogastroduodenoscopy (~01/2024) ?Z98.890 - Other specified postprocedural states (ICD-10) Social History Smoking Status: Former smoker What tobacco products do you use: cigarettes Years smoked: 15 Smoking quit date/years: <= 15 years ago Do you use any of these nicotine containing products: None Second hand tobacco smoke exposure: No How often do you have a drink containing alcohol: never How often do you have six or more drinks on one occasion: Never AUDIT-C Alcohol total score: 0 Non-prescribed substance use: denies use service: Yes Exam Narrative: Exam Narrative: Alert and oriented no acute distress. No respiratory distress. Examination of the right 3rd finger shows a scab over the dorsal surface right 3rd finger posterior medial that is tender to the touch. There is no drainage from this area. He has another area of scabbing just below the D IP crease same side without any drainage. Distally he has some tenderness noted over the fat pad but knows significant firmness. Const: Vital Signs, click to edit/add: Vital Signs - 24 hr 07/30/24 08:23 Temperature 97.9 F Pulse Rate [Pulse Oximeter] 50 L Respiratory Rate 18 Blood Pressure [Ri ght Upper Arm] 166/87 H Pulse Oximetry 98 Oxygen Delivery Me thod Room Air Documenting provider has reviewed patient's vital signs: yes Course Course ED Course: Differential diagnosis includes but is not limited to osteo myelitis, cellulitis, foreign body retention. This time will undergo x-ray. Reevaluation(s) Reevaluation #1: X-ray reassuring but given the penetrating injury will order CT to rule out osteomyelitis. Vital Signs Vital signs: Initial Vital Signs Temperature 97.9 F 07/30/24 08:23 Temperature Source Temporal Artery Scan 07/30/24 08:23 Pulse Rate 50 L 07/30/24 08:23 Respiratory Rate 18 07/30/24 08:23 Blood Pressure 166/87 H 07/30/24 08:23 Blood Pressure Mean 113 H 07/30/24 08:23 Pulse Oximetry 98 07/30/24 08:23 Oxygen Delivery Method Room Air 07/30/24 08:23 Vital Signs Temperature 97.9 F 07/30/24 08:23 Pulse Rate 50 L 07/30/24 08:23 Respiratory Rate 18 07/30/24 08:23 Blood Pressure 166/87 H 07/30/24 08:23 Pulse Oximetry 98 07/30/24 08:23 Oxygen Delivery Method Room Air 07/30/24 08:23 Temperature 97.9 F 07/30/24 08:23 Pulse Rate 50 L 07/30/24 08:23 Respiratory Rate 18 07/30/24 08:23 Blood Pressure 166/87 H 07/30/24 08:23 Pulse Oximetry 98 07/30/24 08:23 Oxygen Delivery Method Room Air 07/30/24 08:23 Medications Administered Medications: Discontinued Medications Generic Name Dose Route Start Last Admin Trade Name Freq PRN Reason Stop Dose Admin Diphtheria/Tetanus/Acell Pertussis 0.5 ml 07/30/24 10:17 07/30/24 10:38 Tetanus/Diphth/Pertussis 0.5 Ml Syringe IM 07/30/24 10:18 0.5 ml .ONCE ONE Administration Medical Decision Making MDM Narrative Medical decision making narrative: 1. Cellulitis-patient had a penetrating injury with a drill bit on his right 3rd finger on July 20. No evidence of an abscess or osteomyelitis. He is placed on Augmentin 875 p.o. b.i.d. patient also had his tetanus updated. He did not need to receive the IgG given the fact that he has had 3 previous immunizations. 2. Disposition-I did express importance of following up with Orthopedics for a recheck. Patient has had ongoing intermittent episodes of swelling in the finger some tenderness and tingling on the finger tip. There is no evidence of fluid collection requiring I&D today. The symptoms have been ongoing since the . Return to the ER for fever, vomiting,worsening symptoms. Imaging Data Right middle finger: Attestation: I have reviewed the pertinent imaging results. My impression: I do not note any foreign body or fracture Radiologist's impression: No acute or healing fracture. Normal joint alignment. Multifocal osteoarthritis. No focal bone lesions. Normal bone mineralization. Soft tissues are normal. There is some vague hyperdensity in the pad of the finger. IMPRESSION: Vague hyperdensity in the pad of the right 3rd finger over a distance of about [address] right 3rd finger: Attestation: I have reviewed the pertinent imaging results. Radiologist's impression: Moderate osteoarthritis DIP and PIP joints. Small chronic appearing dorsal ossicles at both joints. No acute fracture appreciated. No bone defect. No radiopaque foreign body. No soft tissue gas. Some hazy edema like attenuation in the subcutaneous soft tissues at the PIP joint level of injury. 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 No acute finding. Nonspecific soft tissue edema around the DIP. Discharge Plan Discharge Clinical Impression: Finger injury Patient Disposition: Home, Self-Care Condition: Unchanged Additional Instructions: Your tetanus was given today and will be good through 2034. Start Augmentin as the antibiotic to treat infection. This is in our vending machine out front. Follow up appointment is scheduled at the [facility] on 07/31 with a 1:30pm appointment time. Please check in at 1:20pm. If you have any questions or need to reschedule, please call [phone]. Return to the ER for fever, vomiting, and as needed. Prescriptions: No Action ferrous sulfate [Feosol] 325 mg (65 mg iron) tablet 325 mg PO DAILY loperamide [Anti-Diarrheal (loperamide)] 2 mg capsule 2 mg PO Q6H PRN hydrocodone-acetaminophen 5-325 mg tablet 1 tab PO Q4-6H PRN (Reason: pain) Qty: 10 0RF Follow Up/Referrals: Provider,Not a Local [Primary Care Provider, Family Practice] Stand Alone Forms: [employer] Info Instructions
--- NOTE | 2024-07-30 08:35 | CRLHL7_ITS ---
For Patients: As a result of the Cures Act, medical imaging exams and procedure reports are released immediately into your electronic medical record. You may view this report before your referring provider. If you have questions, please contact your health care provider. INDICATION: Penetrating trauma on July 20 to the D IP joint, drill bit through the finger COMPARISON: None. TECHNIQUE: Three views right 3rd finger. FINDINGS: No acute or healing fracture. Normal joint alignment. Multifocal osteoarthritis. No focal bone lesions. Normal bone mineralization. Soft tissues are normal. There is some vague hyperdensity in the pad of the finger. IMPRESSION: Vague hyperdensity in the pad of the right 3rd finger over a distance of about 2 millimeters. No fracture. Dictated by Latrice Acosta MD @ 07/30/2024 9:09:52 AM (Electronically Signed)
--- NOTE | 2024-07-30 09:36 | CRLHL7_ITS ---
For Patients: As a result of the Century Cures Act, medical imaging exams and procedure reports are released immediately into your electronic medical record. You may view this report before your referring provider. If you have questions, please contact your health care provider. INDICATION: Penetrating injury. COMPARISON: 30 Jul 2024. TECHNIQUE: Noncontrast images centered on the right 3rd finger. FINDINGS: Moderate osteoarthritis DIP and PIP joints. Small chronic appearing dorsal ossicles at both joints. No acute fracture appreciated. No bone defect. No radiopaque foreign body. No soft tissue gas. Some hazy edema like attenuation in the subcutaneous soft tissues at the PIP joint level of injury. 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 No acute finding. Nonspecific soft tissue edema around the DIP. Please note that all CT scans at this facility use dose modulation, iterative reconstruction, and/or weight-based dosing when appropriate to reduce radiation dose to as low as reasonably achievable. Dictated by Deejay Bustillos MD @ 07/30/2024 10:08:37 AM (Electronically Signed)
[2024-07-30] MEDS: TETANUS/DIPHTH/PERTUSSIS 0.5 ML SYRINGE IM (10:38)
== END 2024-07-30 10:47 | disposition home or self-care (01) ==
PROVIDERS: Emergency Provider Family Medicine
DX: S69.81XA Other specified injuries of right wrist, hand and finger(s), initial encounter (principal); W29.8XXA Contact with other powered hand tools and household machinery, initial encounter; Y99.0 Civilian activity done for income or pay; Z23 Encounter for immunization
CPT/HCPCS: 73140; 73200; 90471; 90715; 99283; 99284